=== PATIENT | female | born 1930 | race Caucasian/White ===

== ENCOUNTER 2017-03-19 20:35 | Inpatient (IN) | payer MEDICARE, BC, MEDICAID ==
[~2017-03-19] VITALS: Ht 162.6 cm; Wt 90.7 kg
[~2017-03-19 20:35] MED LIST: BACTRIM DS TABL1 TAB PO; PRED-FORTE 1% OP5 ML EACH EYE
[2017-03-19 21:17] LABS: BASOPHILS 0.3 % (0-2); HEMATOCRIT 38.9 % (36.0-48.0); HEMOGLOBIN 12.7 g/dL (12-16); IMMATURE GRANULOCYTES 0.4 % (0-5); LYMPHOCYTES 14.2 % (15-50); MCH 29.9 pg (26.0-34.0); MCHC 32.6 g/dL (31.0-37.0); MCV 91.5 fL (80.0-100.0); MEAN PLATELET VOLUME 10.1 fL (7.4-10.4); MONOCYTES 12.6 % (2-11); NEUTROPHILS 70.5 % (40-80); RBC 4.25 10x6/uL (4.00-5.40); RDW 12.8 % (11.5-14.5)
[2017-03-19 21:22] LABS: PLATELET COUNT 102 10x3/uL (130-400)
[2017-03-19 21:47] LABS: ANION GAP 9.5 mmol/L (8-16); CALCIUM 8.2 mg/dL (8.5-10.1); CARBON DIOXIDE 30.1 mmol/L (21.0-32.0); CREATININE - SERUM 1.6 mg/dL (0.6-1.3); POTASSIUM - SERUM 4.6 mmol/L (3.5-5.1)
[2017-03-19 22:45] LABS: APPEARANCE CLEAR (CLEAR); BILIRUBIN NEGATIVE (NEGATIVE); COLOR YELLOW (YELLOW); GLUCOSE NEGATIVE (NEGATIVE); KETONE NEGATIVE (NEGATIVE); LEUKOCYTE ESTERASE 2+ (NEGATIVE); NITRITE NEGATIVE (NEGATIVE); PROTEIN TRACE mg/dL (NEGATIVE); UROBILINOGEN NORMAL (NORMAL)
[2017-03-19 22:46] LABS: BACTERIA FEW /hpf (NONE SEEN); EPITHELIAL CELLS 0-5 /hpf (0-5); WHITE CELLS - URINE >50 /hpf (0-5)
[2017-03-20 01:08] VITALS: BP 117/57; Ht 162.6 cm; Wt 90.7 kg
[2017-03-20 04:00] VITALS: BP 138/76
--- NOTE | 2017-03-20 07:45 | NUR ---
SLEEPING AT THIS TIME WITH RESPIRATIONS EVEN AND NON LABORED. CALL LIGHT IN REACH AND IV PATENT. WILL CONTINUE WITH PLAN OF CARE.
[2017-03-20] MEDS ORDERED: BAYER CHEWABLE81 MG PO (08:25)
[2017-03-20] MEDS ORDERED: NEURONTIN 300300 MG PO (08:26)
[2017-03-20] MEDS ORDERED: KLOR-CON 88 MEQ PO (08:27)
[2017-03-20] MEDS ORDERED: KLOR-CON 1010 MEQ PO (08:28)
[2017-03-20] MEDS ORDERED: MUCINEX600 MG PO (08:28)
[2017-03-20] MEDS ORDERED: MAG-OX 400 MG400 MG PO (08:28)
[2017-03-20] MEDS ORDERED: OYST-CAL-5001 TAB PO (08:29)
[2017-03-20] MEDS ORDERED: SENNA PLUS TA1 UDTAB PO (08:30)
[2017-03-20] MEDS ORDERED: VITAMIN B-121000 MCG PO (08:31)
[2017-03-20] MEDS ORDERED: REMERON30 MG PO (08:31)
[2017-03-20] MEDS ORDERED: FUROSEMIDE20 MG PO (08:32)
[2017-03-20] MEDS ORDERED: KEPPRA500 MG PO (08:32)
[2017-03-20] MEDS ORDERED: ARTIFICIAL TEAR15 ML EACH EYE (08:33)
[2017-03-20] MEDS ORDERED: COREG12.5 MG PO (08:33)
[2017-03-20] MEDS ORDERED: TRAVATAN Z2.5 ML RIGHT EYE (08:42)
[2017-03-20] MEDS ORDERED: ALPHAGAN 0.2%5 ML EACH EYE (08:42)
[2017-03-20] MEDS ORDERED: IPRAT-ALBUT 0.5-3 ML UPD (08:43)
[2017-03-20] MEDS ORDERED: ALOPHEN PILLS5 MG PO (08:44)
[2017-03-20] MEDS ORDERED: BIOFREEZE118 ML TOPICAL (08:44)
[2017-03-20] MEDS ORDERED: IMODIUM2 MG PO (08:45)
[2017-03-20] MEDS ORDERED: HYDROCODONE-APA1 TAB PO ×2 (08:46→08:47)
[2017-03-20] MEDS ORDERED: MILK OF MAGNESI30 ML PO (08:46)
[2017-03-20] MEDS ORDERED: ACETAMINOPHEN325 MG PO (08:46)
[2017-03-20 08:54] VITALS: BP 147/75
--- NOTE | 2017-03-20 10:00 | NUR ---
INCONTINENCE CARE PROVIDED AT THIS TIME. AT BEDSIDE. CLIF MAT ALARM APPLIED TO PATIENT FOR FALL PRECAUTIONS. DENIES NEEDS AT PRESENT TIME. IV TO RIGHT ARM PATENT. CALL LIGHT IN REACH. WILL CONTINUE WITH PLAN OF CARE.
[2017-03-20 10:17] LABS: BASOPHILS 0.2 % (0-2); EOSINOPHILS 1.6 % (0-7); HEMATOCRIT 38.2 % (36.0-48.0); HEMOGLOBIN 12.3 g/dL (12-16); IMMATURE GRANULOCYTES 0.3 % (0-5); LYMPHOCYTES 14.2 % (15-50); MCH 29.6 pg (26.0-34.0); MCHC 32.2 g/dL (31.0-37.0); MCV 91.8 fL (80.0-100.0); MEAN PLATELET VOLUME 9.8 fL (7.4-10.4); MONOCYTES 11.4 % (2-11); NEUTROPHILS 72.3 % (40-80); PLATELET COUNT 88 10x3/uL (130-400); RBC 4.16 10x6/uL (4.00-5.40); RDW 12.8 % (11.5-14.5); WBC 6.1 10x3/uL (4.8-10.8)
[2017-03-20 10:38] LABS: ALBUMIN 2.4 g/dL (3.4-5.0); ANION GAP 7.3 mmol/L (8-16); BILIRUBIN - TOTAL 0.3 mg/dL (0.2-1.3); CALCIUM 8.1 mg/dL (8.5-10.1); CREATININE - SERUM 1.5 mg/dL (0.6-1.3); POTASSIUM - SERUM 4.3 mmol/L (3.5-5.1); PROTEIN - SERUM 5.7 g/dL (6.4-8.2)
--- NOTE | 2017-03-20 11:31 | NUR ---
SCHEDULED MEDICATIONS ADMINISTERED AT THIS TIME. SCD'S APPLIED TO BLE AND CLIF MAT ALARM ON AND IN USE. INCENTIVE SPIROMETER IN USE WITH 750ML OF INSPIRATORY VOLUME.
[2017-03-20 11:47] LABS: PLATELET ESTIMATE DECREASED
[2017-03-20 13:03] VITALS: BP 104/68
--- NOTE | 2017-03-20 15:07 | NUR ---
Patient Name: JHONY SAMUELS Admission Status: ER Accout number: [id number] Admission Date: 03-20-2017 : 1932 Admission Diagnosis: Attending: LOLY Current LOS: 1 Anticipated DC Date: 03-23-2017 Planned Disposition: Shelter Facility Primary Insurance: MEDICARE A & B Discharge Planning Comments: CM MET WITH PATIENT REGARDING D/C NEEDS AND PLANS. PATIENT STATED SHE LIVES WITH HER SPOUSE (CHARLIE) AND HIS DAUGHTER. PATIENT STATED [facility] AND WILL RETURN THERE AT DISCHARGE. PATIENT STATED SHE HAS A WALKER, WHEELCHAIR, AND OXYGEN (HS) AT HOME IF NEEDED. PATIENTS PCP IS DR. HUFF AND PHARMACY IS ALONSO ON [address]. CM WILL CONTINUE TO FOLLOW PATIENT WITH D/C NEEDS AND PLANS. PCP DR. DARIA GUPTA ON [address]- [phone] CHARLIE (SPOUSE) [phone] Business Test Analyst: Jaycee Byrnes Is the patient Alert and Oriented? Yes 0 * How many steps to enter\exit or inside your home? 3 0 * PCP DR. HUFF 0 * Pharmacy ALONSO ON [address] 0 * Preadmission Environment Shelter Facility 0 * Facility Name [facility] 0 * ADLs Partial Dependent 0 * Partial ADLs (Assistance needed) Ambulation Bathing Dressing Medication Management Toileting 0 * Equipment Oxygen Walker Wheelchair 0 * List name and contact numbers for known caregivers / representatives who currently or will assist patient after discharge: CHARLIE (SPOUSE) [phone] * Community resources currently utilized None 0 * Additional services required to return to the preadmission environment? Yes 0 * Can the patient safely return to the preadmission environment? Yes 0 * Has this patient been hospitalized within the prior 30 days at any hospital? No 0 Grand Total: 0
[2017-03-20 20:00] VITALS: BP 151/61
--- NOTE | 2017-03-20 22:59 | NUR ---
REC'D PATIENT SLEEPING. NO DISTRESS NOTED. TRIED TO WAKE UP TO GIVE MEDS AND SHE WOULDNT. RESPONDING WHEN I TRIED TO WAKE HER UP BUT SHE IS VERY SLEEPY. DAUGHTER IS AT BEDSIDE. HELD MEDS UNTIL SHE WAKES UP. WILL TRY TO WAKE UP LATER INTO THE NIGHT. INSTRUCTED DAUGHTER TO CALL IF NEEDS ANYTHING VERBALIZED UNDERSTANDING. VITALS ARE STABLE 151/61, 98, 98% 2L
[2017-03-21] VITALS (7 sets, daily range): BP systolic 90–135; BP diastolic 54–67
--- NOTE | 2017-03-21 02:16 | NUR ---
PATIENT IS RESTING QUIETLY WITH EYES CLOSED. RECIEVING OXYGEN VIA NASAL CANNULA AT 2L/MIN. NO SIGNS OF DISTRESS NOTED. BED RAILS UP X'S 2.
[2017-03-21 04:45] LABS: BASOPHILS 0.1 % (0-2); EOSINOPHILS 1.9 % (0-7); HEMATOCRIT 36.7 % (36.0-48.0); HEMOGLOBIN 11.9 g/dL (12-16); IMMATURE GRANULOCYTES 0.4 % (0-5); LYMPHOCYTES 20.9 % (15-50); MCH 29.8 pg (26.0-34.0); MCHC 32.4 g/dL (31.0-37.0); MEAN PLATELET VOLUME 10.1 fL (7.4-10.4); MONOCYTES 12.8 % (2-11); NEUTROPHILS 63.9 % (40-80); PLATELET COUNT 86 10x3/uL (130-400); RBC 3.99 10x6/uL (4.00-5.40); RDW 12.7 % (11.5-14.5); WBC 7.3 10x3/uL (4.8-10.8)
[2017-03-21 05:01] LABS: ALBUMIN 2.2 g/dL (3.4-5.0); ANION GAP 6.5 mmol/L (8-16); BILIRUBIN - TOTAL 0.29 mg/dL (0.2-1.3); CALCIUM 8.1 mg/dL (8.5-10.1); CARBON DIOXIDE 30.5 mmol/L (21.0-32.0); PROTEIN - SERUM 5.5 g/dL (6.4-8.2)
--- NOTE | 2017-03-21 07:34 | NUR ---
PATIENT IS RESTING QUIETLY IN BED WITH HER EYES CLOSED. NO S/S OF DISTRESS NOTED. CALL LIGHT IN PATIENT'S REACH. CLIF MAT ALARM IN PLACE FOR PATIENT'S SAFETY. WILL MONITOR PATIENT.
--- NOTE | 2017-03-21 12:43 | NUR ---
PATIENT RESTING WITH HER EYES CLOSED. NO S/S OF DISTRESS NOTED. PATIENT AWAKENS TO VERBAL STIMULI. AT PATIENT'S BEDSIDE. SCHEDULED EYE DROPS GIVEN TO PATIENT. LUNCH TRAY AT PATIENT'S BEDSIDE. CALL LIGHT IN PATIENT'S REACH. WILL MONITOR.
--- NOTE | 2017-03-21 19:50 | NUR ---
PATIENT IS RESTING QUIETLY WITH EYES CLOSED. NO SIGNS OF DISTRESS NOTED. PATIENT IS RECIEVING OXYGEN VIA NASAL CANNULA AT 2L/MIN. BED IN LOWEST POSITION, CALL LIGHT IN REACH. BED RAILS UP X'S 2.
--- NOTE | 2017-03-21 20:44 | NUR ---
REC'D SITTING UP IN BED. ALERT AND ORIENTED X4. NO DISTRESS NOTED. DENIED PAIN AT THIS TIME. STATED "IM GONNA GET A BATH LATER SO I DONT WANT TO FALL ALSEEP". HAS BEEN VERY DIFFICULT TO WAKE UP ONCE ASLEEP. INSTRUCTED TO CALL IF NEEDED ANYTHING. VERBALIZED UNDERSTANDING. BED LOW, LOCKED, CALL LIGHT IN REACH, ALARM ON. WILL CONT TO MONITOR. WILL ADMIN AM/PM MEDS PRESCRIBED.
[2017-03-22 04:02] VITALS: BP 123/68
[2017-03-22 04:40] LABS: BASOPHILS 0.2 % (0-2); EOSINOPHILS 2.6 % (0-7); HEMOGLOBIN 11.3 g/dL (12-16); IMMATURE GRANULOCYTES 0.2 % (0-5); LYMPHOCYTES 24.6 % (15-50); MCH 29.8 pg (26.0-34.0); MCHC 32.3 g/dL (31.0-37.0); MCV 92.3 fL (80.0-100.0); MEAN PLATELET VOLUME 10.5 fL (7.4-10.4); MONOCYTES 11.9 % (2-11); NEUTROPHILS 60.5 % (40-80); PLATELET COUNT 96 10x3/uL (130-400); RBC 3.79 10x6/uL (4.00-5.40); RDW 12.7 % (11.5-14.5); WBC 5.7 10x3/uL (4.8-10.8)
[2017-03-22 05:01] LABS: ALBUMIN 2.1 g/dL (3.4-5.0); ANION GAP 4.5 mmol/L (8-16); BILIRUBIN - TOTAL 0.23 mg/dL (0.2-1.3); CALCIUM 8.1 mg/dL (8.5-10.1); CARBON DIOXIDE 33.2 mmol/L (21.0-32.0); POTASSIUM - SERUM 3.7 mmol/L (3.5-5.1); PROTEIN - SERUM 5.4 g/dL (6.4-8.2)
--- NOTE | 2017-03-22 07:48 | NUR ---
PATIENT RESTING IN THE BED. PATIENT AWAKENS EASILY TO VERBAL STIMULI. SCHEDULED MORNING MEDICATIONS GIVEN TO PATIENT. PATIENT TOLERATED WELL. SCD'S IN PLACE TO PATIENT'S BILATERAL LOWER EXTREMITIES. IV SITE PATENT WITHPUT ANY S/S OF INFECTION IN PATIENT'S RIGHT HAND. OXYGEN IN PLACE AT 2L PER NC. CALL LIGHT IN PATIENT'S REACH. PATIENT DENIES NEEDS AT PRESENT TIME. WILL MONITOR.
[2017-03-22 08:32] VITALS: BP 147/70
[2017-03-22 11:56] VITALS: BP 114/75
[2017-03-22] MEDS ORDERED: MACROBID100 MG PO (14:20)
--- NOTE | 2017-03-22 15:41 | NUR ---
PATIENT FOR DISCHARGE BACK TO [facility]. CM TELEPHONED [facility]. SPOKE WITH TERRI PATIENT'S NURSE WAS BUSY. CLINICAL UPDATE GIVEN. PATIENT'S NURSE, STEPHAN WILL CALL BACK WITH REPORT. [facility] WILL CALL BACK REGARDING TRANSPORTATION BACK TO FACILITY. VAHID SPOKE W/ PRIMARY NURSE, GEORGE. HE COULD NOT VERIFY IF PATIENT WAS BEING ADMITTED TO A SNF OR LTC BED.
--- NOTE | 2017-03-22 16:32 | NUR ---
REPORT CALLED TO [facility]. REPORT GIVEN TO URBY VAZQUEZ.
[2017-03-22 16:42] VITALS: BP 123/81
--- NOTE | 2017-03-22 17:27 | NUR ---
[facility] HERE TO GET PATIENT. PATIENT TRANSFERRED FROM HER BED TO A STRETCHER. PATIENT TRANSFERRED BACK TO [facility].
== END 2017-03-22 17:27 | DRG 690 ==
LOC: D.ER 20:35 → OBSVTIME 23:30 → D.MS 23:30
PROVIDERS: Emergency Medicine; ADMIT Family Medicine
DX: N39.0 Urinary tract infection, site not specified (principal); B95.2 Enterococcus as the cause of diseases classified elsewhere; E86.0 Dehydration; I10 Essential (primary) hypertension; I25.10 Atherosclerotic heart disease of native coronary artery without angina pectoris; Z95.0 Presence of cardiac pacemaker; F32.9 Major depressive disorder, single episode, unspecified; F41.9 Anxiety disorder, unspecified; Z95.5 Presence of coronary angioplasty implant and graft; Z87.891 Personal history of nicotine dependence

== ENCOUNTER 2017-06-03 13:58 | Emergency (ER) | payer MEDICARE, BC, MEDICAID ==
[2017-03-20 01:08] VITALS: BMI 35.5
[~2017-06-03 13:58] MED LIST changes: +ACETAMINOPHEN325 MG PO; +ALOPHEN PILLS5 MG PO; +ALPHAGAN 0.2%5 ML EACH EYE; +ARTIFICIAL TEAR15 ML EACH EYE; +BAYER CHEWABLE81 MG PO; +BIOFREEZE118 ML TOPICAL; +COREG12.5 MG PO; +FUROSEMIDE20 MG PO; +HYDROCODONE-APA1 TAB PO; +IMODIUM2 MG PO; +IPRAT-ALBUT 0.5-3 ML UPD; +KEPPRA500 MG PO; +KLOR-CON 1010 MEQ PO; +KLOR-CON 88 MEQ PO; +MACROBID100 MG PO; +MAG-OX 400 MG400 MG PO; +MILK OF MAGNESI30 ML PO; +MUCINEX600 MG PO; +NEURONTIN 300300 MG PO; +OYST-CAL-5001 TAB PO; +REMERON30 MG PO; +SENNA PLUS TA1 UDTAB PO; +TRAVATAN Z2.5 ML RIGHT EYE; +VITAMIN B-121000 MCG PO
[2017-06-03 15:04] LABS: BASOPHILS 0.1 % (0-2); EOSINOPHILS 3.5 % (0-7); HEMATOCRIT 41.7 % (36.0-48.0); HEMOGLOBIN 13.1 g/dL (12-16); IMMATURE GRANULOCYTES 0.3 % (0-5); LYMPHOCYTES 26.6 % (15-50); MCH 29.8 pg (26.0-34.0); MCHC 31.4 g/dL (31.0-37.0); MEAN PLATELET VOLUME 11.1 fL (7.4-10.4); MONOCYTES 11.5 % (2-11); PLATELET COUNT 92 10x3/uL (130-400); RBC 4.39 10x6/uL (4.00-5.40); RDW 12.6 % (11.5-14.5); WBC 6.8 10x3/uL (4.8-10.8)
[2017-06-03 15:16] LABS: ALBUMIN 2.6 g/dL (3.4-5.0); ALKALINE PHOSPHATASE 77 U/L (46-116); ALT (SGPT) 14 U/L (10-68); BILIRUBIN - TOTAL 0.33 mg/dL (0.2-1.3); CALC OSMOLALITY 291 mosm/kg (275-300); CALCIUM 8.5 mg/dL (8.5-10.1); CARBON DIOXIDE 33.9 mmol/L (21.0-32.0); CHLORIDE - SERUM 107 mmol/L (98-107); CREATININE - SERUM 0.9 mg/dL (0.6-1.3); GLUCOSE 97 mg/dL (74-106); POTASSIUM - SERUM 4.3 mmol/L (3.5-5.1); PROTEIN - SERUM 5.5 g/dL (6.4-8.2); SODIUM 145 mmol/L (136-145); UREA NITROGEN 22 mg/dL (7-18); eGFR NON AFRICAN AMERICAN 63 mL/min (90-120)
[2017-06-03 15:22] LABS: CREATINE KINASE 56 UL (21-215)
[2017-06-03 15:25] LABS: TROPONIN-I < 0.017 ng/mL (0.000-0.060)
[2017-06-03 15:29] LABS: PLATELET ESTIMATE NORMAL
[2017-06-03 15:32] LABS: APPEARANCE HAZY (CLEAR); BILIRUBIN NEGATIVE (NEGATIVE); COLOR YELLOW (YELLOW); GLUCOSE NEGATIVE (NEGATIVE); KETONE NEGATIVE (NEGATIVE); NITRITE POSITIVE (NEGATIVE); PROTEIN NEGATIVE (NEGATIVE); UROBILINOGEN NORMAL (NORMAL)
[2017-06-03 15:34] LABS: BACTERIA MANY /hpf (NONE SEEN); EPITHELIAL CELLS 0-5 /hpf (0-5); RED CELLS - URINE 0-5 /hpf (0-5)
== END 2017-06-03 17:10 | disposition home or self-care (01) ==
LOC: D.ER 13:58
PROVIDERS: Emergency Medicine
DX: R55 Syncope and collapse (principal); J40 Bronchitis, not specified as acute or chronic